=== PATIENT | female | born 1925 | race Caucasian/White ===

== ENCOUNTER 2017-03-27 16:26 | Emergency (ER) | payer MEDICARE, BC ==
[~2017-03-27] VITALS: Ht 160 cm; Wt 45.4 kg
[~2017-03-27 16:26] MED LIST: AMLODIPINE5 MG PO; ASPIRIN81 M2 PO; ATENOLOL25 MG PO; CENTRUM SILVER1 CTB PO; CITALOPRAM HYDR20 MG PO; CLARITIN10 MG PO; EVISTA60 MG PO; ULTRAM50 MG PO; VITAMIN D; VITAMIN D PO; VITAMIN D1000 IU PO; VITAMIN E; VITAMIN E PO; VITAMIN E1000 UNIT PO
[2017-03-27 16:31] VITALS: BP 169/58
[2017-03-27 17:01] LABS: BASO % 0.4 % (0.0-1.0); EOS # 0.1 10*3/uL (0.0-0.4); EOS % 1.8 % (1.0-4.0); HEMATOCRIT 37.7 % (37.0-47.0); HEMOGLOBIN 12.5 g/dl (12.0-16.0); LYMPH # 2.3 10*3/uL (1.3-4.4); LYMPH % 32.1 % (27.0-41.0); MEAN CELL VOLUME 97.9 fl (81.0-99.0); MEAN CORPUSCULAR HGB 32.5 pg (27.0-31.0); MEAN CORPUSCULAR HGB CONC 33.2 g/dl (33.0-37.0); MEAN PLATELET VOLUME 10.2 fl (9.6-12.3); MONO # 0.5 10*3/uL (0.1-1.0); NEUT # 4.2 10*3/uL (2.3-7.9); NEUT % 58.3 % (47.0-73.0); PLATELET COUNT AUTOMATED 207 10*3/uL (130-400); RED BLOOD COUNT 3.85 10*6/uL (4.10-5.10); RED CELL DISTRI WIDTH 12.8 % (0-14.5); WHITE BLOOD COUNT 7.2 10*3/uL (4.8-10.8)
[2017-03-27 17:10] LABS: ACT PARTIAL THROMBO TIME 24.2 SECONDS (20.8-31.5)
[2017-03-27 17:11] LABS: BUN 7 mg/dl (7-24); CHLORIDE 104 mmol/L (98-107); SODIUM 142 mmol/L (136-145)
== END 2017-03-27 18:42 | disposition home or self-care (01) ==
LOC: ED 16:26
PROVIDERS: Emergency Medicine
DX: S02.2XXA Fracture of nasal bones, initial encounter for closed fracture (principal); W19.XXXA Unspecified fall, initial encounter; Y92.099 Unspecified place in other non-institutional residence as the place of occurrence of the external cause; S00.83XA Contusion of other part of head, initial encounter; W10.8XXA Fall (on) (from) other stairs and steps, initial encounter; Y99.8 Other external cause status; Y93.89 Activity, other specified